=== PATIENT | male | born 1990 | race Caucasian/White ===

== ENCOUNTER 2018-03-28 21:53 | Emergency (ER) | payer SELFPAY | END 2018-03-28 22:36 | disposition left against medical advice (07) | LOC: ER 22:22 | DX: Z53.21 Procedure and treatment not carried out due to patient leaving prior to being seen by health care provider (principal) ==

== ENCOUNTER 2018-04-04 19:49 | Emergency (ER) | payer SELFPAY ==
[~2018-04-04] VITALS: Ht 175.3 cm; Wt 78.0 kg
[2018-04-04 20:28] VITALS: BP 143/98
== END 2018-04-04 23:03 | disposition left against medical advice (07) ==
LOC: ER 19:49
DX: Z53.21 Procedure and treatment not carried out due to patient leaving prior to being seen by health care provider (principal)

== ENCOUNTER 2018-09-18 13:49 | Emergency (ER) | payer SELFPAY | END 2018-09-18 14:41 | disposition left against medical advice (07) | LOC: ER 13:49 | DX: S51.819A Laceration without foreign body of unspecified forearm, initial encounter (principal); Z53.21 Procedure and treatment not carried out due to patient leaving prior to being seen by health care provider; X58.XXXA Exposure to other specified factors, initial encounter; Y93.89 Activity, other specified; Y92.89 Other specified places as the place of occurrence of the external cause; Y99.8 Other external cause status ==

== ENCOUNTER 2024-08-10 01:43 | Emergency (ER) | payer SELFPAY ==
[~2024-08-10] VITALS: Ht 175.3 cm; Wt 80.0 kg
[2024-08-10 01:52] VITALS: BP 133/112; PULSE 120; RESP 18; TEMP 37.2; O2SAT 100
== END 2024-08-10 02:21 | disposition left against medical advice (07) ==
LOC: ER 01:43
DX: Z53.21 Procedure and treatment not carried out due to patient leaving prior to being seen by health care provider (principal)